=== PATIENT | female | born 1990 | race Caucasian/White ===

== ENCOUNTER 2018-10-02 | Emergency (ER) | payer OTHER ==
[~2018-10-02] VITALS: Ht 167.6 cm; Wt 81.0 kg
[2018-10-02 00:05] VITALS: BP 116/81
[2018-10-02] MEDS ORDERED: AMOX500C2 PO (01:08)
[2018-10-02] MEDS ORDERED: HYDR-3965 PO (01:08)
[2018-10-02] MEDS ORDERED: amoxicillin 250mg capsule PO ONE (01:10)
[2018-10-02] MEDS ORDERED: acetaminophen 325mg tablet PO ONE (01:10)
== END 2018-10-02 01:48 | disposition home or self-care (01) ==
LOC: ER 00:01
DX: H66.91 Otitis media, unspecified, right ear (principal); Z79.899 Other long term (current) drug therapy
CPT/HCPCS: 99283

== ENCOUNTER 2018-10-15 17:40 | Emergency (ER) | payer OTHER ==
[~2018-10-15] VITALS: Ht 167.6 cm; Wt 81.0 kg
[~2018-10-15 17:40] MED LIST: AMOX500C2 PO; HYDR-3965 PO
[2018-10-15 17:41] VITALS: BP 111/67
[2018-10-15] MEDS ORDERED: CIPR7.5D OT (18:02)
== END 2018-10-15 18:20 | disposition home or self-care (01) ==
LOC: ER 17:41
DX: H60.91 Unspecified otitis externa, right ear (principal); Z79.899 Other long term (current) drug therapy
CPT/HCPCS: 99283